=== PATIENT | female | born 1940 | race African-American/Black ===

== ENCOUNTER 2016-12-21 19:06 | Emergency (ER) | payer OTHER ==
[~2016-12-21] VITALS: Ht 170.2 cm; Wt 81.2 kg
[~2016-12-21 19:06] MED LIST: ACETAMINOPHEN-1 EAC1 ORAL; AMLODIPINE BESYL5 MG ORAL; CATAPRES0.1 MG ORAL; CIPROFLOXACIN500 M2 ORAL; CLONIDINE 0.2M0.2 MG GT; GABAPENTIN300 MG ORAL; GENTAMICIN SUL3.5 GM RIGHT EYE; INDOMETHACIN75 MG ORAL; KEFLEX500 MG ORAL; NORCO 5-325 TA1 EACH ORAL; PHENAZOPYRIDIN100 MG ORAL; SIMVASTATIN20 MG ORAL
[2016-12-21 20:31] LABS: APPEARANCE,URINE SLIGHTLY CLOUDY; KETONES,URINE NEGATIVE (NEGATIVE); LEUKOCYTE ESTERASE ,URINE 3+ (NEGATIVE); NITRITE,URINE NEGATIVE (NEGATIVE); PH,URINE 7 (4.5-8.0); PROTEIN,URINE NEGATIVE (NEGATIVE); UROBILINOGEN,URINE NORMAL MG/DL (0.0-1.0)
[2016-12-21 20:33] LABS: BASOPHILS % (AUTO) 1.1 % (0.0-2.0); EOSINOPHILS % (AUTO) 2.9 % (0.0-3.0); LYMPHOCYTES % (AUTO) 51.1 % (20.0-45.0); MEAN CORPUSCULAR HEMOGLOBIN 31.8 PG (27.0-31.0); MEAN CORPUSCULAR HGB CONC 30.8 G/DL (32.0-36.0); MEAN CORPUSCULAR VOLUME 103 FL (80-99); MEAN PLATELET VOLUME 5.2 FL (6.5-10.1); MONOCYTES % (AUTO) 3.3 % (1.0-10.0); NEUTROPHILS % (AUTO) 41.6 % (45.0-75.0); PLATELET COUNT 350 K/UL (150-450); RED BLOOD COUNT 4.17 M/UL (4.20-5.40); RED CELL DISTRIBUTION WIDTH 13.1 % (11.6-14.8); WHITE BLOOD COUNT 11.4 K/UL (4.8-10.8)
[2016-12-21 20:46] LABS: BACTERIA,URINE FEW /HPF; SQUAMOUS EPITHELIAL CELL,UR MODERATE /LPF (NONE/OCC)
[2016-12-21 20:51] LABS: ALANINE AMINOTRANSFERASE 11 U/L (12-78); ALBUMIN/GLOBULIN RATIO 0.8 (1.0-2.7); ANION GAP 11 (5-15); ASPARTATE AMINO TRANSFERASE 10 U/L (15-37); CALCIUM 10.9 MG/DL (8.5-10.1); CARBON DIOXIDE 28 MMOL/L (21-32); CHLORIDE 103 MMOL/L (98-107); CREATININE 1.3 MG/DL (0.55-1.30); LIPASE 132 U/L (73-393); POTASSIUM 3.2 MMOL/L (3.5-5.1); SODIUM 142 MMOL/L (136-145); TOTAL PROTEIN 8.3 G/DL (6.4-8.2)
[2016-12-21] MEDS ORDERED: KEFLEX500 MG ORAL (21:34)
[2016-12-21] MEDS ORDERED: RANITIDINE HCL150 MG ORAL (21:34)
[2016-12-21] MEDS ORDERED: ZOFRAN ODT4 MG ORAL (21:34)
[2016-12-21 21:53] VITALS: BP 155/76
--- NOTE | 2016-12-22 21:25 | Emergency Room Report ---
History of Present Illness General Chief Complaint: Vomiting Source: Patient Present Illness HPI 76-year-old female resents to ED for evaluation. Patient states the last 2 days shes been vomiting multiple times. Denies any abdominal pain. Denies any chest pain. Denies any fevers or chills. No other aggravating relieving factors. Denies any other associated symptoms Allergies: Coded Allergies: ASPIRIN (Verified Allergy, Intermediate, Itching, 10/08/12) Patient History Past Medical History: HTN Past Surgical History: none Pertinent Family History: none Social History: Denies: smoking, alcohol use, drug use Last Menstrual Period: NA Now: No Immunizations: UTD Reviewed Nursing Documentation: PMH: Agreed, PSxH: Agreed Nursing Documentation-PMH Hx Cardiac Problems: Yes - high cholesterol Hx Hypertension: Yes Hx Cancer: No Hx Gastrointestinal Problems: Yes Hx Neurological Problems: Yes - CATARACT PROBLEMS , sciatica Review of Systems All Other Systems: negative except mentioned in HPI Physical Exam Vital Signs Date Time Temp Pulse Resp B/P (MAP) Pulse Ox O2 Delivery O2 Flow Rate FiO2 12/21/16 19:16 98.2 75 18 162/71 98 Room Air Sp02 EP Interpretation: reviewed, normal General Appearance: no apparent distress, alert, GCS 15, non-toxic Head: normocephalic, atraumatic Eyes: bilateral eye normal inspection, bilateral eye PERRL ENT: hearing grossly normal, normal pharynx, no angioedema, normal voice Neck: full range of motion, supple/symm/no masses Respiratory: chest non-tender, lungs clear, normal breath sounds, speaking full sentences Cardiovascular #1: regular rate, rhythm, no edema Cardiovascular #2: 2+ carotid (R), 2+ carotid (L), 2+ radial (R), 2+ radial (L) , 2+ dorsalis pedis (R), 2+ dorsalis pedis (L) Gastrointestinal: normal bowel sounds, non tender, soft, non-distended, no guarding, no rebound Rectal: deferred Genitourinary: normal inspection, no CVA tenderness Musculoskeletal: back normal, gait/station normal, normal range of motion, non- tender Neurologic: alert, oriented x3, responsive, motor strength/tone normal, sensory intact, speech normal Psychiatric: judgement/insight normal, memory normal, mood/affect normal, no suicidal/homicidal ideation Reflexes: 3+ bicep (R), 3+ bicep (L), 3+ tricep (R), 3+ tricep (L), 3+ knee (R) , 3+ knee (L) Skin: normal color, no rash, warm/dry, well hydrated Lymphatic: no adenopathy Medical Decision Making Diagnostic Impression: Primary Impression: uti Additional Impression: Vomiting Qualified Codes: R11.2 - Nausea with vomiting, unspecified ER Course Hospital Course 76-year-old F presents to ED with N/V. differential diagnosis: gastritis, SBO, cholecystits Clinical course Patient placed on stretcher. On panel assembler. After initial history and physical I ordered labs, IV fluids, Zofran and pepcid Labs - no leukocytosis, no electrolyte abnormalities, LFTs normal, UA + bacteria Upon reassessment, patient states symptoms has improved. I feel this is a highly complex case requiring extensive working including EKG/ Rhythm strip, Xray/CT/US, Blood/urine lab work, repeat exams while in ED, and administration of strong opiates/narcotics for pain control, admission to hospital or close patient follow up. Diagnosis - UTI, vomiting Stable and discharged to home with prescriptions for Zantac, zofran, keflex. Followup with PMD. Return to ED if symptoms recur or worsen Labs Test 12/21/16 19:51 White Blood Count 11.4 K/UL (4.8-10.8) Red Blood Count 4.17 M/UL (4.20-5.40) Hemoglobin 13.3 G/DL (12.0-16.0) Hematocrit 43.1 % (37.0-47.0) Mean Corpuscular Volume 103 FL (80-99) Mean Corpuscular Hemoglobin 31.8 PG (27.0-31.0) Mean Corpuscular Hemoglobin Concent 30.8 G/DL (32.0-36.0) Red Cell Distribution Width 13.1 % (11.6-14.8) Platelet Count 350 K/UL (150-450) Mean Platelet Volume 5.2 FL (6.5-10.1) Neutrophils (%) (Auto) 41.6 % (45.0-75.0) Lymphocytes (%) (Auto) 51.1 % (20.0-45.0) Monocytes (%) (Auto) 3.3 % (1.0-10.0) Eosinophils (%) (Auto) 2.9 % (0.0-3.0) Basophils (%) (Auto) 1.1 % (0.0-2.0) Urine Color Pale yellow Urine Appearance Slightly cloudy Urine pH 7 (4.5-8.0) Urine Specific [place] 1.005 (1.005-1.035) Urine Protein Negative (NEGATIVE) Urine Glucose (UA) Negative (NEGATIVE) Urine Ketones Negative (NEGATIVE) Urine Occult Blood Negative (NEGATIVE) Urine Nitrite Negative (NEGATIVE) Urine Bilirubin Negative (NEGATIVE) Urine Urobilinogen Normal MG/DL (0.0-1.0) Urine Leukocyte Esterase 3+ (NEGATIVE) Urine RBC 5-10 /HPF (0 - 2) Urine WBC 5-10 /HPF (0 - 2) Urine Squamous Epithelial Cells Moderate /LPF (NONE/OCC) Urine Bacteria Few /HPF (NONE) Sodium Level 142 MMOL/L (136-145) Potassium Level 3.2 MMOL/L (3.5-5.1) Chloride Level 103 MMOL/L (98-107) Carbon Dioxide Level 28 MMOL/L (21-32) Anion Gap 11 (5-15) Blood Urea Nitrogen 12 mg/dL (7-18) Creatinine 1.3 MG/DL (0.55-1.30) Estimat Glomerular Filtration Rate mL/min (>60) Glucose Level 127 MG/DL (74-106) Calcium Level 10.9 MG/DL (8.5-10.1) Total Bilirubin 0.3 MG/DL (0.2-1.0) Aspartate Amino Transf (AST/SGOT) 10 U/L (15-37) Alanine Aminotransferase (ALT/SGPT) 11 U/L (12-78) Alkaline Phosphatase 130 U/L (46-116) Troponin I 0.002 ng/mL (0.000-0.056) Total Protein 8.3 G/DL (6.4-8.2) Albumin 3.8 G/DL (3.4-5.0) Globulin 4.5 g/dL Albumin/Globulin Ratio 0.8 (1.0-2.7) Lipase 132 U/L (73-393) Last Vital Signs Date Time Temp Pulse Resp B/P (MAP) Pulse Ox O2 Delivery O2 Flow Rate FiO2 12/21/16 21:53 98.2 75 16 155/76 97 Room Air Status: improved Disposition: HOME, SELF-CARE Condition: Stable Scripts Ranitidine Hcl* (ZANTAC*) 150 Mg Tablet 150 MG ORAL TWICE A DAY, #30 TAB Prov: BRETT LOPEZ M.D. 12/21/16 Ondansetron Odt* (ZOFRAN ODT*) 4 Mg Tab.rapdis 4 MG ORAL Q6H Y for Nausea & Vomiting, #30 TAB 0 Refills Prov: BRETT LOPEZ M.D. 12/21/16 Cephalexin* (KEFLEX*) 500 Mg Capsule 500 MG ORAL Q6H, #28 CAP 0 Refills Prov: BRETT LOPEZ M.D. 12/21/16 Referrals: [facility],REFERRING (PCP) Patient Instructions: Dysuria BRETT LOPEZ M.D. Dec 22, 2016 21:25
== END 2016-12-21 21:53 | disposition home or self-care (01) ==
LOC: EMR 19:40
DX: N39.0 Urinary tract infection, site not specified (principal); R11.10 Vomiting, unspecified; I10 Essential (primary) hypertension; H26.9 Unspecified cataract
CPT/HCPCS: 36415; 80053; 81003; 83690; 84484; 85025; 96361; 96374; 96375; 99284; J2405; S0028

== ENCOUNTER 2020-01-16 10:49 | Emergency (ER) | payer OTHER ==
[~2020-01-16] VITALS: Ht 170.2 cm; Wt 84.8 kg
[~2020-01-16 10:49] MED LIST changes: +RANITIDINE HCL150 MG ORAL; +ZOFRAN ODT4 MG ORAL
[2020-01-16 11:05] VITALS: BP 179/90
--- NOTE | 2020-01-16 11:10 | NUR ---
ED Nurse Note: Patient walked in to ER c/o right shoulder pain x 6 days radiating to right upper arm; patient states she woke up with pain and reports no injury. AAO x4, VSS at this time.
[2020-01-16] MEDS ORDERED: Methocarbamol 500mg tab ORAL ONE (11:15)
[2020-01-16] MEDS ORDERED: Naproxen 500mg tab ORAL ONE (11:15)
[2020-01-16] MEDS ORDERED: LIDODERM700 M1 TOPIC (11:20)
[2020-01-16] MEDS ORDERED: TYLENOL EXTRA500 MG ORAL (11:20)
[2020-01-16] MEDS ORDERED: ROBAXIN-750750 MG PO (11:20)
--- NOTE | 2020-01-16 11:21 | Emergency Room Report ---
History of Present Illness General Chief Complaint: Pain Source: Patient, Medical Record Present Illness HPI 79-year-old -[place] female with past medical history of hypertension presents with atraumatic right shoulder pain x2 days. Patient states that she slept on her right arm and right shoulder funny and when she woke up she had pain and stiffness. She is right-hand dominant. She has not tried any medication at home to alleviate her symptoms. The pain starts on the right posterior shoulder and radiates to the right bicep and tricep. She denies any numbness, paresthesia, focal weakness falls, ever, headache, neck stiffness, photophobia, chest pain, back pain, abdominal pain, or shortness of breath. The patient's symptoms were gradual onset, severity was moderate, duration since 2 days. Quality: Aching Past medical history: Hypertension Past surgical history: Denies Smoking: Denies Alcohol use: Denies Drug use: Denies Review of systems: CONST: No fevers or chills, No night sweats PULMONARY: No productive cough, No shortness of breath CARDIAC: No chest pain, No palpitations GI: No vomiting, No diarrhea , No melena_or_BRBPR : No dysuria, No hematuria, No discharge NEURO: No new_focal_weakness_or_numbness, No confusion, No vision changes 14 point Review of Systems is otherwise negative except per HPI Physical Exam: GENERAL: Awake_alert_ nontoxic, no acute distress Spo2 95% on room air-normal EYES: Extraocular muscles are intact. Conjunctivae clear. Lids without swelling ENT: External nose and ear normal_in_appearance. Oropharynx clear. Head_atraumatic, Moist_oral_mucosa NECK: No JVD. No meningismus. No thyromegaly. Supple. Trachea midline. No midline cervical, thoracic, lumbar deformity or step-off RESP: Normal respiratory effort. Symmetric rise. No stridor. Clear_t o_auscultation_No_rales_No_wheezes CARDIAC: [Regular rate] and regular rhytm. No_significant pedal edema. ABDOMEN: Soft. Nondistended. Nontender_No_rebound_or_guarding. MSK: Right upper extremity: Hypertonicity of right trapezius. Tenderness to palpati on of right trapezius. Tenderness palpation of right bicep. Full active and passive range of motion of right shoulder and internal and external rotation, flexion and extension. Sensation is intact to light touch. Cap refill less than 5 seconds x 5 digits. No deformity. Compartments are soft and compressible. normal muscle tone, without rigidity. Extremities without asymmetric deformity or swelling. SKIN: Warm and dry. No visible cyanosis or pallor NEUROLOGIC: Alert, oriented x3. Motor_and_sensation_grossly_intact. No truncal ataxia. Gait_normal Psych: Normal mood and affect, normal judgment and insight - COORDINATION OF CARE Case was discussed with: Patient Any imaging ordered were interpreted as part of the medical decision making: Medical Decision Making/Plan: Differential diagnosis includes musculoskeletal pain, fracture, dislocation, compartment syndrome, arterial occlusion, nerve damage, among others. Patient is well-appearing and afebrile. No neurologic deficits. Patient does have notable tenderness to palpation and muscular hypertonicity palpated on the right trapezius muscle. Distally the patient has capillary refill <2 seconds and strong pulses. There is no pallor or pain out of proportion to exam. There is no significant swelling, deformity, or report of significant dislocation that subsequently reduced. No evidence of arterial occlusion or injury. The associated joints have full range of motion without any significant pain or restriction in mobility. No ev idence at this time of major ligamentous disruption. Xrays of the right shoulder are within normal limits, compartments are soft, the patient is able to bear weight and has no neurologic deficits. No evidence of fracture, dislocation, foreign body, significant nerve damage, compartment syndrome at this time. Patient received lidocaine patch, Robaxin, and Naprosyn in the emergency department with full relief of symptoms. Will DC home with prescription for Tylenol and Robaxin. Patient was instructed not to drive or operate heavy machinery while taking Robaxin as it is potentially sedating. I advised her to use stretching exercises and heating pad to her hypertonic muscles while at home. She verbalizes her understanding. Pertinent results reviewed with the patient. I educated the patient on the current treatment plan including the risks, benefits, and alternatives. I also discussed the extent and limitations of the current evaluation. The patient expressed understanding and agreement with plan. I recommended PMD follow-up within 1-2 days. Also advised that the patient return to the Emergency Department as soon as possible if they experience any new, persistent, or worsening symptoms. 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 Nursing Documentation-PMH Past Medical History: No History, Except For Hx Cardiac Problems: Yes - high cholesterol Hx Hypertension: Yes Hx Cancer: No Hx Gastrointestinal Problems: Yes Hx Dialysis: No History Of Psychiatric Problem: No Hx Neurological Problems: Yes - CATARACT PROBLEMS , sciatica Physical Exam Vital Signs Date Time Temp Pulse Resp B/P (MAP) Pulse Ox O2 Delivery O2 Flow Rate FiO2 01/16/20 10:54 97.0 85 14 179/90 (119) 99 Room Air Sp02 EP Interpretation: reviewed, normal Medical Decision Making Diagnostic Impression: Primary Impression: Muscle spasm Additional Impression: Arm pain, right Chest X-Ray Diagnostic Results Chest X-Ray Diagnostic Results : MICHELLE Garcia Right shoulder X-ray: Views: [ 3 ] view(s) No fracture. Normal alignment. Soft tissues normal. Joint spaces normal. Indication: [Pain] Impression: [no acute disease] The X-ray(s) were independently viewed and interpreted contemporaneously - Electronically signed by Mira dunne DO Reevaluation Time: 11:20 Last Vital Signs Date Time Temp Pulse Resp B/P (MAP) Pulse Ox O2 Delivery O2 Flow Rate FiO2 01/16/20 10:54 97.0 85 14 179/90 (119) 99 Room Air Status: improved Disposition: HOME, SELF-CARE Admit Decision Time: 11:20 Condition: Stable Scripts Lidocaine Patch* (Lidoderm Patch*) 1 Each Adh..patch 1 PATCH TOPIC DAILY, #7 PATCH 0 Refills Patch(es) may remain in place for up to 12 hours in any 24-hour period. Prov: Mira Stone D.O. 01/16/20 Acetaminophen* (TYLENOL EXTRA STRENGTH*) 500 Mg Tablet 500 MG ORAL Q8H PRN for Prn Headache/Temp > 101, #30 TAB 0 Refills Prov: Mira Stone D.O. 01/16/20 Methocarbamol* (ROBAXIN-750*) 750 Mg Tablet 750 MG PO TID, #21 TAB 0 Refills Prov: Mira Stone D.O. 01/16/20 Patient Instructions: Muscle Cramps and Spasms, [id number] Additional Instructions: Instructions for patient/international freight forwarder: Follow up with your physician in 1-2 days. Do not take Robaxin and drive as it is potentially sedating. Do not combine with alcohol. Follow-up with your doctor sooner if your condition requires a more timely clinical reevaluation. Return to the emergency department immediately if you feel that your condition is worsening or if you have any new or concerning symptoms. Review your discharge instructions and take any prescriptions given as instructed. [facility] PROVIDES FREE OR LOW-COST HEALTH SERVICES TO PEOPLE WHO CAN SHOW PROOF THAT THEY LIVE IN [facility]. TO FIND MORE CLINICS PARTNERED WITH [facility] TO PROVIDE SERVICE, PLEASE CALL . Mira Stone D.O. Jan 16, 2020 11:21
[2020-01-16 11:38] VITALS: BP 179/90
--- NOTE | 2020-01-16 11:39 | NUR ---
ED Nurse Note: Pt cleared by health care Provider for discharge. DC instructions/prescription was given and explained to pt and verbalized understanding of teachings. All medical deviecs such as ID band removed. Pt is AAO x4, ambulatory and left with all personal belongings.
--- NOTE | 2020-01-16 13:20 | Diagnostic Imaging Report ---
Indication: Right shoulder pain Technique: 3 views of the right shoulder Comparison: none Findings: No acute fractures. No dislocations. The joint spaces are preserved Impression: Negative
== END 2020-01-16 11:39 | disposition home or self-care (01) ==
LOC: EMR 11:10
DX: M25.511 Pain in right shoulder (principal); M62.838 Other muscle spasm; I10 Essential (primary) hypertension; Z88.6 Allergy status to analgesic agent; M79.601 Pain in right arm; E78.00 Pure hypercholesterolemia, unspecified
CPT/HCPCS: 73030; Z7502; 99283